=== PATIENT | male | born 1985 | race Caucasian/White ===

== ENCOUNTER 2016-04-22 16:25 | Inpatient (IN) | payer MEDICAID ==
--- NOTE | 2016-04-22 16:31 | EDPHY ---
H & P Time Seen by Provider: 04/22/16 16:27 HPI/ROS: CHIEF COMPLAINT: Febrile illness HISTORY OF PRESENT ILLNESS: The patient presents to the ED with a 3 day history of fever and dry cough. The patient has a history of IV drug use and has been using recently. The patient reports a prior history of a febrile illness approximately 3 months ago which led to a hospitalization in [place]. He tells me during that hospitalization he was not treated with antibiotics. It sounds as if they did not establish an obvious source of infection. The patient denies any acute vomiting or diarrhea. The patient does have nausea. The patient denies significant abdominal pain. He does complain of diffuse myalgias. REVIEW OF SYSTEMS: A comprehensive 10 point review of systems is otherwise negative aside from elements mentioned in the history of present illness. Source: Patient Exam Limitations: No limitations - Family History Significant Family History: No pertinent family hx - Social History Smoking Status: Current some day smoker Alcohol Use: Other Drug Use: Heroin - Physical Exam Exam: General Appearance: Alert, no distress Eyes: Pupils equal and round no pallor or injection ENT, Mouth: Mucous membranes moist Respiratory: There are no retractions, rhonchorous breath sounds heard in the right lung field Cardiovascular: Tachycardic, 2/6 systolic ejection murmur Gastrointestinal: Abdomen is soft and nontender, no masses, bowel sounds normal Neurological: A&O, normal motor function, normal sensory exam, normal cranial nerves Skin: Stigmata of IV drug use noted Musculoskeletal: Neck is supple nontender Extremities: symmetrical, full range of motion Psychiatric: Patient is oriented X 3, there is no agitation Constitutional: Initial Vital Signs Temperature (C) 103.2 C H 04/22/16 16:48 Heart Rate 111 H 04/22/16 16:48 Respiratory Rate 16 04/22/16 16:48 Blood Pressure 117/68 04/22/16 16:48 O2 Sat (%) 98 04/22/16 16:48 O2 Delivery Mode Nasal Cannula O2 (L/minute) 2 Allergies/Adverse Reactions: No Known Allergies Allergy (Unverified 04/22/16 17:09) Medical Decision Making - Diagnostics Imaging: Chest x-ray AP lateral: Right middle lobe infiltrate noted ED Course/Re-evaluation: The patient presents to the emergency department with sepsis as defined by SIRS criteria (tachycardia, fever) in source of infection with pneumonia. The patient had blood cultures x2 obtained. His initial lactate is normal. He has no evidence of end-organ dysfunction. Blood cultures x2 have been obtained. The patient has been started on Invanz and vancomycin given his history of IV drug use. The patient does have a slight systolic ejection murmur. Given his history of IV drug use, endocarditis is not fully excluded. Consultation is made with the hospitalist service for admission. The patient has no evidence of severe sepsis or septic shock. The patient will be admitted to a medical-surgical floor bed. I discussed the case with Dr. Mark King at 6:00 p.m.. He will admit the patient. Differential Diagnosis: Differential diagnosis considered includes influenza, pneumonia, sepsis, severe sepsis, septic shock - Data Points Laboratory Results: Laboratory Results 04/22/16 16:34 04/22/16 16:34 04/22/16 04/22/16 17:18 16:34 WBC 8.06 10^3/uL (3.80-9.50) RBC 4.51 10^6/uL (4.40-6.38) Hgb 13.8 g/dL (13.7-17.5) Hct 40.5 % (40.0-51.0) MCV 89.8 fL (81.5-99.8) MCH 30.6 pg (27.9-34.1) MCHC 34.1 g/dL (32.4-36.7) RDW 13.1 % (11.5-15.2) Plt Count 190 10^3/uL (150-400) MPV 10.0 fL (8.7-11.7) Neut % (Auto) 68.0 % (39.3-74.2) Lymph % (Auto) 16.1 % (15.0-45.0) [place] % (Auto) 15.3 H % (4.5-13.0) Eos % (Auto) 0.0 L % (0.6-7.6) Baso % (Auto) 0.2 L % (0.3-1.7) Nucleat RBC Rel Count 0.0 % (0.0-0.2) Absolute Neuts (auto) 5.48 10^3/uL (1.70-6.50) Absolute Lymphs (auto) 1.30 10^3/uL (1.00-3.00) Absolute Monos (auto) 1.23 H 10^3/uL (0.30-0.80) Absolute Eos (auto) 0.00 L 10^3/uL (0.03-0.40) Absolute Basos (auto) 0.02 10^3/uL (0.02-0.10) Absolute Nucleated RBC 0.00 10^3/uL (0-0.01) Immature Gran % 0.4 % (0.0-1.1) Immature Gran # 0.03 10^3/uL (0.00-0.10) VBG Lactic Acid 1.5 mmol/L (0.7-2.1) Sodium 131 L mEq/L (134-144) Potassium 4.2 mEq/L (3.5-5.2) Chloride 90 L mEq/L (97-110) Carbon Dioxide 28 mEq/l (22-31) Anion Gap 13 mEq/L (8-16) BUN 6 L mg/dL (7-23) Creatinine 0.6 L mg/dL (0.7-1.3) Estimated GFR > 60 Glucose 93 mg/dL (70-100) Calcium 8.8 mg/dL (8.5-10.4) Influenza A & B (PCR) Pending Medications Given: Discontinued Medications Acetaminophen (Tylenol) 1,000 mg PO EDNOW ONE Stop: 04/22/16 17:09 Last Admin: 04/22/16 17:09 Dose: 1,000 mg Sodium Chloride (Ns) 1,000 mls @ 0 mls/hr IV ONCE ONE PRN Reason: Wide Open Stop: 04/22/16 17:09 Last Admin: 04/22/16 17:09 Dose: 1,000 mls Departure - Departure Disposition: [facility] Inpatient Acute Clinical Impression: Sepsis, Pneumonia, Intravenous drug abuse Condition: Fair Referrals: NONE *PRIMARY CARE P,. [Primary Care Provider] - As per Instructions
[2016-04-22] MEDS ORDERED: IBUPROFEN 600 MG TAB PO ONE (16:37)
[2016-04-22] MEDS ORDERED: ACETAMINOPHEN 500 MG TAB ONE (16:37)
[2016-04-22 16:53] LABS: % IMMATURE GRANULYOCYTES 0.4 % (0.0-1.1); ABSOLUTE IMMATURE GRANULOCYTES 0.03 10^3/uL (0.00-0.10); ADD DIFF? NO; ADD MORPH? NO; ADD SCAN? NO; ATYPICAL LYMPHOCYTE FLAG 60 (0-99); FRAGMENT RBC FLAG 0 (0-99); HEMATOCRIT 40.5 % (40.0-51.0); HEMOGLOBIN 13.8 g/dL (13.7-17.5); LEFT SHIFT FLG 60 (0-99); LIPEMIA HEMOLYSIS FLAG 90 (0-99); MEAN CELL HEMOGLOBIN 30.6 pg (27.9-34.1); MEAN CELL HEMOGLOBIN CONCENTR. 34.1 g/dL (32.4-36.7); MEAN CELL VOLUME 89.8 fL (81.5-99.8); PLATELET CLUMPS FLAG 10 (0-99); PLATELET COUNT 190 10^3/uL (150-400); RED BLOOD CELL COUNT 4.51 10^6/uL (4.40-6.38); RED CELL DISTRIBUTION WIDTH 13.1 % (11.5-15.2)
[2016-04-22 17:05] LABS: ANION GAP 13 mEq/L (8-16); CALCIUM 8.8 mg/dL (8.5-10.4); CARBON DIOXIDE 28 mEq/l (22-31); CHLORIDE 90 mEq/L (97-110); CREATININE 0.6 mg/dL (0.7-1.3); GLOMERULAR FILTRATION RATE > 60; GLUCOSE 93 mg/dL (70-100); POTASSIUM 4.2 mEq/L (3.5-5.2); SODIUM 131 mEq/L (134-144)
[2016-04-22] MEDS ORDERED: ACETAMINOPHEN 500 MG TAB PO ONE (17:08)
[2016-04-22] MEDS ORDERED: NS 1,000 ML IV ONE (17:08)
[2016-04-22] MEDS ORDERED: ERTAPENEM 1 GM in NS 100 ML IV ONE (17:36)
[2016-04-22] MEDS ORDERED: VANCOMYCIN HCL/NORMAL SALINE 250 ML IV ONE (17:55)
[2016-04-22] MEDS ORDERED: NICOTINE 21 MG/24 HR PATCH TD ONE (18:40)
--- NOTE | 2016-04-22 18:46 | PDGENHP ---
History and Physical - Chief Complaint Fever and weakness - History of Present Illness this is a 30-year-old male with history of IV methamphetamine use presented to the emergency department with 4 days of fever. Patient states that he had a temperature of 104degrees. His fever broke yesterday and returned today. It is associated with chills and rigors. He has had a cough for 2 weeks that is worsening. He has occasional alejo and sputum. He has some shortness of breath. Reports some dull pain in his low back. Patient states that he was hospitalized 2 and half months ago at [facility] in [place] where he was diagnosed with a systemic infection but was not treated with antibiotics. He denies having a persistent fever since this past discharge. History Information - Allergies/Home Medication List Allergies/Adverse Reactions: No Known Allergies Allergy (Unverified 04/22/16 17:09) Home Medications: NK [No Known Home Meds] 04/22/16 [Last Taken Unknown] I have personally reviewed and updated: family history, medical history, social history, surgical history - Past Medical History Additional medical history: Hepatitis-C - Social History Smoking Status: Current some day smoker Alcohol Use: None Drug Use: Other ( reports IV methamphetamine use. Last 6 was yesterday.) Additional social history: patient is . 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 Is currently homeless and is staying [facility]. He plans to travel back to [facility] once he has funds in place Review of Systems ROS: 10pt was reviewed & negative except for what was stated in HPI & below Physical Exam Temp Pulse Resp BP Pulse Ox 37.4 C 100 14 93/55 L 96 04/22/16 18:39 04/22/16 18:39 04/22/16 18:39 04/22/16 18:39 04/22/16 18:39 Constitutional: not in pain, uncomfortable Eyes: PERRL, anicteric sclera, EOMI Ears, Nose, Mouth, Throat: moist mucous membranes, hearing normal, ears appear normal, no oral mucosal ulcers Cardiovascular: systolic murmur, tachycardia, No JVD, No edema Respiratory: no respiratory distress, no rales or rhonchi, clear to auscultation , rhonchi ( Right lung field) Gastrointestinal: normoactive bowel sounds, soft, non-tender abdomen, no palpable masses, No guarding, No rebound Genitourinary: no bladder fullness, no bladder tenderness Skin: warm, normal color, no rashes or abrasions, no fluctuance, no induration, other ( diaphoretic), No mottled Musculoskeletal: full muscle strength, no muscle tenderness, normal joint ROM, no joint effusions Neurologic: AAOx3, CN II-XII Intact, No facial droop Psychiatric: interacting appropriately, not anxious, not encephalopathic, thought process linear Lymph, Heme, Immunologic: no cervical LAD, no supraclavicular LAD Lab Data & Imaging Review 04/22/16 16:34 04/22/16 16:34 WBC 8.06 10^3/uL (3.80-9.50) 04/22/16 16:34 RBC 4.51 10^6/uL (4.40-6.38) 04/22/16 16:34 Hgb 13.8 g/dL (13.7-17.5) 04/22/16 16:34 Hct 40.5 % (40.0-51.0) 04/22/16 16:34 MCV 89.8 fL (81.5-99.8) 04/22/16 16:34 MCH 30.6 pg (27.9-34.1) 04/22/16 16:34 MCHC 34.1 g/dL (32.4-36.7) 04/22/16 16:34 RDW 13.1 % (11.5-15.2) 04/22/16 16:34 Plt Count 190 10^3/uL (150-400) 04/22/16 16:34 MPV 10.0 fL (8.7-11.7) 04/22/16 16:34 Neut % (Auto) 68.0 % (39.3-74.2) 04/22/16 16:34 Lymph % (Auto) 16.1 % (15.0-45.0) 04/22/16 16:34 [place] % (Auto) 15.3 % (4.5-13.0) H 04/22/16 16:34 Eos % (Auto) 0.0 % (0.6-7.6) L 04/22/16 16:34 Baso % (Auto) 0.2 % (0.3-1.7) L 04/22/16 16:34 Nucleat RBC Rel Count 0.0 % (0.0-0.2) 04/22/16 16:34 Absolute Neuts (auto) 5.48 10^3/uL (1.70-6.50) 04/22/16 16:34 Absolute Lymphs (auto) 1.30 10^3/uL (1.00-3.00) 04/22/16 16:34 Absolute Monos (auto) 1.23 10^3/uL (0.30-0.80) H 04/22/16 16:34 Absolute Eos (auto) 0.00 10^3/uL (0.03-0.40) L 04/22/16 16:34 Absolute Basos (auto) 0.02 10^3/uL (0.02-0.10) 04/22/16 16:34 Absolute Nucleated RBC 0.00 10^3/uL (0-0.01) 04/22/16 16:34 Immature Gran % 0.4 % (0.0-1.1) 04/22/16 16:34 Immature Gran # 0.03 10^3/uL (0.00-0.10) 04/22/16 16:34 VBG Lactic Acid 1.5 mmol/L (0.7-2.1) 04/22/16 16:34 Sodium 131 mEq/L (134-144) L 04/22/16 16:34 Potassium 4.2 mEq/L (3.5-5.2) 04/22/16 16:34 Chloride 90 mEq/L (97-110) L 04/22/16 16:34 Carbon Dioxide 28 mEq/l (22-31) 04/22/16 16:34 Anion Gap 13 mEq/L (8-16) 04/22/16 16:34 BUN 6 mg/dL (7-23) L 04/22/16 16:34 Creatinine 0.6 mg/dL (0.7-1.3) L 04/22/16 16:34 Estimated GFR > 60 04/22/16 16:34 Glucose 93 mg/dL (70-100) 04/22/16 16:34 Calcium 8.8 mg/dL (8.5-10.4) 04/22/16 16:34 Visualized and Interpreted Chest x-ray results: Yes Chest X-Ray results: normal heart size, infiltrate ( right middle lobe) Assessment & Plan Assessment: This is a 30-year-old male with history of IV drug abuse presenting with: # sepsis # suspected community-acquired pneumonia # holosystolic murmur concerning for endocarditis # history of hepatitis-C # homelessness # tobacco abuse # history of IV drug abuse plan: -Start empiric antibiotics with vancomycin and Zosyn pending blood culture results - monitor for signs symptoms of severe sepsis and septic shock - echocardiogram - obtained records from [facility] regarding his admission 2 and half months ago - will check LFTs as well as coags disposition: patient is high risk and will be admitted to the hospital under inpatient status due to need for IV antibiotics
[2016-04-22] MEDS ORDERED: ONDANSETRON 4 MG/2 ML VIAL IVP PRN (18:54)
[2016-04-22 18:55] LABS: COLOR YELLOW; LEUKOCYTE ESTERASE,URINE NEGATIVE (NEGATIVE); NITRITE,URINE NEGATIVE (NEGATIVE)
[2016-04-22] MEDS: PIPERACILLIN/TAZO 3.375 GM/DEX 50 ML IV SCH (22:14)
--- NOTE | 2016-04-22 23:51 | DX ---
Chest 2 views at 1630 hours History: Cough. Findings: Alveolar opacity in the right middle lobe consistent with pneumonia. Left lung is clear. No pleural effusion or pneumothorax. Impression: Right middle lobe pneumonia.
[2016-04-22] MEDS: VANCOMYCIN 1.25 GM in D5W 250 ML IV SCH (23:54)
[2016-04-23] MEDS ORDERED: PIPERACILLIN/TAZO 3.375 GM/DEX 50 ML IV SCH
[2016-04-23] MEDS: ACETAMINOPHEN 325 MG TAB PO PRN ×2 (00:02→06:05)
[2016-04-23] MEDS: PIPERACILLIN/TAZO 3.375 GM/DEX 50 ML IV SCH ×3 (04:02→16:00)
[2016-04-23 05:33] LABS: ADD DIFF? YES; ADD MORPH? NO; FRAGMENT RBC FLAG 0 (0-99); HEMATOCRIT 37.9 % (40.0-51.0); HEMOGLOBIN 12.8 g/dL (13.7-17.5); LIPEMIA HEMOLYSIS FLAG 90 (0-99); MEAN CELL HEMOGLOBIN 30.5 pg (27.9-34.1); MEAN CELL HEMOGLOBIN CONCENTR. 33.8 g/dL (32.4-36.7); MEAN CELL VOLUME 90.2 fL (81.5-99.8); MEAN PLATELET VOLUME 10.5 fL (8.7-11.7); PLATELET CLUMPS FLAG 0 (0-99); PLATELET COUNT 151 10^3/uL (150-400); RED CELL DISTRIBUTION WIDTH 13.4 % (11.5-15.2)
[2016-04-23 05:41] LABS: LEFT SHIFT FLG 130 (0-99)
[2016-04-23 05:42] LABS: ADD SCAN? NO; ATYPICAL LYMPHOCYTE FLAG 140 (0-99)
[2016-04-23 05:45] LABS: INR 1.12 (0.83-1.16); PROTIME(PATIENT) 14.3 SEC (12.0-15.0)
[2016-04-23 05:46] LABS: ALANINE AMINOTRANSFERASE 50 IU/L (21-72); ALBUMIN 2.6 g/dL (3.5-5.0); ALKALINE PHOSPHATASE 66 IU/L (38-126); ANION GAP 8 mEq/L (8-16); ASPARTATE AMINOTRANSFERASE 20 IU/L (17-59); BILIRUBIN,TOTAL 0.7 mg/dL (0.1-1.4); CALCIUM 8.3 mg/dL (8.5-10.4); CARBON DIOXIDE 28 mEq/l (22-31); CHLORIDE 99 mEq/L (97-110); CREATININE 0.5 mg/dL (0.7-1.3); GLOMERULAR FILTRATION RATE > 60; GLUCOSE 95 mg/dL (70-100); POTASSIUM 3.5 mEq/L (3.5-5.2); SODIUM 135 mEq/L (134-144); TOTAL PROTEIN 5.4 g/dL (6.3-8.2)
[2016-04-23 06:08] LABS: PLATELET ESTIMATE ADEQUATE (ADEQ)
[2016-04-23] MEDS: VANCOMYCIN 1.25 GM in D5W 250 ML IV SCH ×2 (08:19→16:37)
[2016-04-23] MEDS: NICOTINE 21 MG/24 HR PATCH TD SCH (08:19)
--- NOTE | 2016-04-23 09:44 | ECHO ---
[id number] + + [address] : : [place] [address] : : [phone] + + Adult Echocardiographic Report + ------+ :Name: RALPH WELLScindy Date: 04/23/2016 08:16 AM : : Hospital Admission Number: [id number] Maria Isabelo n: 373: :: 1985 Gender: Male Height: 80 in : :Age: 30 yrs Race: WH Weight: 250 lb : :Reason For Study: H/O IVDA with murmur : : BSA: 2.5 meters 2 : + ------+ MMode/2D Measurements & Calculations IVSd: 1.1 cm LVIDd: 5.7 cm FS: 31.2 % Ao root diam: 3.4 cm LVPWd: 0.93 cm LVIDs: 4.0 cm EDV(Teich): 163.2 ml LA dimension: 3.6 cm ESV(Teich): 68.3 ml EF(Teich): 58.2 % Normal Measurement Values: + + :LVIDd (3.5-5.7cm) IVSd (0.6-1.1cm) LVPWd (0.6-1.1cm) Aortic Root (2.0-3.7cm)Left Atrium (1.5-4.0cm): :LV Vol(d) (76-115ml) LV Vol(s) (29-48ml) Ejec Fraction (50-65%)PV Dirk (0.6- 1.2m/s) TV Dirk (0.4-1.0m/s) : :MV E Dirk (0.8-1.0m/s)MV A Dirk (0.3-1.0m/s)LVOT Dirk (0.7-1.2m/s) Asc Ao Dirk ( 0.9-1.8m/s) : + + Doppler Measurements & Calculations MV E max dirk: 76.0 cm/sec Ao V2 max: 134.4 cm/sec TR max dirk: 221.3 cm/sec MV A max dirk: 61.7 cm/sec Ao max P.2 mmHg TR max P.6 mmHg MV E/A: 1.2 RAP systole: 5.0 mmHg RVSP(TR): 24.6 mmHg Left Ventricle The left ventricle is not well visualized. There is normal left ventricular wall thickness. Left ventricular systolic function is normal. LV septal wall appears slightly flattenend. Right Ventricle The right ventricle is normal in size and function. Atria The left atrial size is normal. Right atrial size is normal. The interatrial septum is intact with no evidence for an atrial septal defect. Mitral Valve The mitral valve is normal in structure and function. There is no evidence of mitral valve prolapse. There is no mitral valve stenosis. There is trace mitral regurgitation. Tricuspid Valve A tricuspid valve vegetation cannot be excluded. There is trace to mild tricuspid regurgitation. Aortic Valve The aortic valve opens well. There is no aortic stenosis. There is no aortic insufficiency. Pulmonic Valve The pulmonic valve is normal in structure and function. Trace pulmonic valvular regurgitation. Great Vessels The aortic root is normal size. Pericardium/Pleural There is no pericardial effusion. Conclusion A complete two-dimensional transthoracic echocardiogram was performed (2D, M-mode, Doppler and color flow Doppler). Would consider a transesophageal echocardiogram if clinically indicated. Left ventricular systolic function is normal. LV septal wall appears slightly flattenend. The left ventricle is not well visualized. There is trace mitral regurgitation. A tricuspid valve vegetation cannot be excluded. There is trace to mild tricuspid regurgitation. Trace pulmonic valvular regurgitation. Would consider a transesophageal echocardiogram if clinically indicated. Final Reading Physician: Dennis Pereyra signed on 04/23/2016 09:43 AM Ordering Physician: Mark King Performed By: Elizabeth Castillo RDCS
--- NOTE | 2016-04-23 16:42 | HOSPPROG ---
Hospitalist Progress Note Assessment/Plan: * Sepsis - BC + GPC chains - suspect strep -consult ID - will defer narrowing of abx to them -currently IV Vanco, IV Zosyn * RML pneumonia -abx as above * IVDA -check HIV - discussed with patient * Possible TV vegetation -d/w ID whether LEAH needed * Tobacco dependence - patch * Hep C Subjective: Feels very poorly Objective: Vital Signs Temp Pulse Resp BP Pulse Ox 36.5 C 84 18 113/63 99 04/23/16 16:00 04/23/16 16:00 04/23/16 16:00 04/23/16 16:00 04/23/16 16:00 Laboratory Results 04/23/16 04:53 04/23/16 04:53 04/22/16 04/23/16 04/24/16 05:59 05:59 05:59 Intake Total 1999 Balance 1999 PT 14.3 SEC (12.0-15.0) 04/23/16 04:53 INR 1.12 (0.83-1.16) 04/23/16 04:53 ECHO: cannot rule out vegetation on TV - Physical Exam Constitutional: uncomfortable, unkempt, other (diaphoretic and looks fairly toxic and uncomfortable) Cardiovascular: regular rate and rhythym, No JVD, No tachycardia, No edema Respiratory: no respiratory distress, no rales or rhonchi, clear to auscultation Gastrointestinal: normoactive bowel sounds, soft, non-tender abdomen, no palpable masses Skin: rash Neurologic: AAOx3, sensation intact bilaterally Psychiatric: interacting appropriately, not anxious, not encephalopathic, thought process linear ICD10 Worksheet Patient Problems: Problems Problem Status Diagnosed IV drug abuse Acute Pneumonia Acute Sepsis Acute
[2016-04-23] MEDS ORDERED: NS 1,000 ML IV SCH (18:15)
--- NOTE | 2016-04-23 19:04 | GCON ---
[f rep st] CONSULTATION INFECTIOUS DISEASE CONSULTATION REFERRING PHYSICIAN: Ana Dick MD REASON FOR CONSULTATION: Positive blood cultures and abnormal 2D echo. CHIEF COMPLAINT: Fevers and chills. HISTORY OF PRESENT ILLNESS: This is a 30-year-old male with a past medical history significant for bladder diverticulum who uses IV methamphetamine , who started to have complaints of fevers and shaking chills about 5 days ago. He states he also had sweats and intermittent headache. He denied any neck stiffness or pain. He states that recently he had been using methamphetamine IV. He had most recently used it actually 4 days ago, as well as yesterday. He also has been having some right-sided lower rib pain as well, especially with deep breathing or coughing, and that has been there for the past couple of weeks. He denies being short of breath but does have a dry cough. He is unable to bring up any phlegm at this time. He states that he does have nasal drainage and postnasal drip and the secretions are either clear or sometimes greenish in nature. He states he has had that for several weeks. He denies any sinus pressure or pain. He denies any oral pain or sore throat or difficulty swallowing. He said that he had similar symptoms about 3 months ago. He was evaluated at [facility]. He said he had cultures done, but they were negative. He had an MRI Lumbar spine which did not show discitis. He was given supportive care and was discharged at the time. On admit here, he was noted to be febrile to 103, tachycardic to 111, and his blood pressure had dropped to 93/55. He had blood cultures 2 sets drawn and one bottle out of the sets is growing out gram- positive cocci in chains. He had a 2D echo done, which showed a possible tricuspid valve vegetation. He also had a chest x-ray done, which showed a right middle lobe pneumonia. He was placed on vancomycin and Zosyn, and Infectious Disease is now called for further evaluation and opinion regarding above. REVIEW OF SYSTEMS: Fevers, chills and sweats. HEAD: Mild headache, mostly in the frontal region, relieved with Tylenol. Denies any neck stiffness or pain. EYES: No change in vision. ENT: No sore throat, difficulty, swallowing, ear pain or ear drainage. He had some nasal drainage as stated above without sinus pressure. CARDIOVASCULAR: Denies any chest pain, although has had intermittent sensations of tachycardia. RESPIRATORY: Denies any shortness of breath. Does have a dry cough mostly. ABDOMEN: Denies any nausea, vomiting, abdominal pain or diarrhea. : No dysuria, hematuria, back pain or flank pain. MUSCULOSKELETAL: Denies any joint pains or muscle aches. LOWER EXTREMITIES: Denies any swelling of the lower extremities. ENDOCRINE: He states he has lost 20 pounds over the past 2 weeks. Rest of 10-point review of systems essentially negative except for above. PAST MEDICAL HISTORY: Significant for bladder diverticulum and hepatitis C (s/ p treatment with Interferon in 2012 where he states he then subsequently had a negative viral load.) I reviewed records from [facility] and found that in 12/2015 he had a detectable HCV viral load of 91,000 at [facility].. PAST SURGICAL HISTORY: Significant for surgery for the bladder diverticulum as a child. ALLERGIES: No known drug allergies. SOCIAL HISTORY: He smokes 1/2 pack of cigarettes per day for the past 3 years. Alcohol: He denies alcohol use. Drugs: He uses methamphetamine. He shares needles with his only who states she is HCV negative. Last was yesterday. He is . He is unemployed. He moved to [place] in November, and he has been in [place] for the past 1 month. He is homeless and staying in [facility]. He is originally from [place]. FAMILY HISTORY: Significant for diabetes. PHYSICAL EXAMINATION: VITAL SIGNS: Temperature current 36.5. Pulse is 84. Respiratory rate is 18, blood pressure 113/63, saturation 99% on 1 L of O2 via nasal cannula. GENERAL: Patient is resting in bed in no acute respiratory distress. He is mildly diaphoretic. He is awake, alert and oriented x3. HEENT : Head is normocephalic, atraumatic. Pupils are equal, round and reactive to light. No conjunctival injection or petechiae noted. Oropharynx is clear. There is no posterior pharyngeal erythema or thrush, no oropharyngeal lesions noted. CARDIOVASCULAR: S1, S2. Regular rate and rhythm. He has a soft systolic murmur noted. RESPIRATORY: Coarse breath sounds at the right base with rhonchi appreciated. ABDOMEN: Positive bowel sounds in all 4 quadrants. Soft, nontender, nondistended. No organomegaly appreciated. EXTREMITIES: No lower extremity edema. MUSCULOSKELETAL: No obvious joint effusions or pain on palpation of the joints. SKIN: No obvious rashes. He has some scabs noted, scattered. LABS: White cell count is 9.6, hemoglobin 12.8. Platelets are 151. Neutrophil count is 40% with 20% bandemia. INR 1.1. Venous lactic acid 1.5. Sodium 135, potassium 3.5. Chloride is 99. Bicarb is 28. BUN is 5, creatinine 0.5. His LFTs are within the normal range. Urinalysis is unremarkable. Influenza A and B PCR negative. Blood cultures x2 sets with gram-positive cocci in chains in 1 set. X-rays were reviewed by me with a right middle lobe infiltrate noted. 2D echo noted with a possible vegetation on the tricuspid valve. ASSESSMENT: 1. Sepsis secondary to gram-positive cocci bacteremia. 2. Right middle lobe pneumonia. 3. Possible endocarditis. 4. Chronic Hepatitis C,-s/p treatment but recently shows detectable viral load PLAN: At this point in time, await final ID on the gram-positive cocci to further delineate antimicrobial therapy. He is currently on vancomycin and Zosyn. Will discontinue the Zosyn and start ceftriaxone and will continue vancomycin for now. Will repeat blood cultures in the a.m. to follow course of therapy. Would recommend a LEAH to further evaluate his tricuspid valve to ascertain whether or not he actually has endocarditis involving the tricuspid valve. Will keep patient n.p.o. Tonight. Plan of care was discussed at length with the patient including a LEAH. Care was coordinated with the hospitalist team and the orders were placed. He will need follow up regarding his Hepatitis C in the outpatient. I thank you very much for allowing me this opportunity to care for your patient in consultation. /[id number]/MODL MTDD
[2016-04-24] MEDS: VANCOMYCIN 1.25 GM in D5W 250 ML IV SCH ×3 (01:03→16:57)
[2016-04-24] MEDS: ACETAMINOPHEN 325 MG TAB PO PRN ×2 (01:17→19:14)
[2016-04-24 05:45] LABS: ADD DIFF? YES; ADD MORPH? NO; ADD SCAN? NO; ATYPICAL LYMPHOCYTE FLAG 70 (0-99); FRAGMENT RBC FLAG 0 (0-99); HEMATOCRIT 46.3 % (40.0-51.0); HEMOGLOBIN 15.4 g/dL (13.7-17.5); LEFT SHIFT FLG 10 (0-99); LIPEMIA HEMOLYSIS FLAG 80 (0-99); MEAN CELL HEMOGLOBIN 30.4 pg (27.9-34.1); MEAN CELL HEMOGLOBIN CONCENTR. 33.3 g/dL (32.4-36.7); MEAN CELL VOLUME 91.3 fL (81.5-99.8); MEAN PLATELET VOLUME 10.4 fL (8.7-11.7); PLATELET CLUMPS FLAG 20 (0-99); PLATELET COUNT 172 10^3/uL (150-400); RED BLOOD CELL COUNT 5.07 10^6/uL (4.40-6.38); RED CELL DISTRIBUTION WIDTH 13.4 % (11.5-15.2)
[2016-04-24 05:47] LABS: ANION GAP 12 mEq/L (8-16); CALCIUM 9.1 mg/dL (8.5-10.4); CARBON DIOXIDE 25 mEq/l (22-31); CHLORIDE 103 mEq/L (97-110); CREATININE 0.6 mg/dL (0.7-1.3); GLOMERULAR FILTRATION RATE > 60; GLUCOSE 95 mg/dL (70-100); POTASSIUM 4.5 mEq/L (3.5-5.2); SODIUM 140 mEq/L (134-144)
--- NOTE | 2016-04-24 07:03 | PCMIDPN ---
Assessment/Plan: Assessment/Plan: 1. Sepsis secondary to GPC bacteremia, RML pneumonia and possible TV endocarditis: - Currently on Vanco, Ceftriaxone -Repeat blood cx in progress-pending -TTE with possible TV vegetation. LEAH ordered for today. Patient NPO -Awaiting ID on the GPC from blood cx. -Will check vanco trough. 2.Chronic HCV: -per patient, s/p treatment with Interferon x 6 months in 2012 with undetectable viral load thereafter. He shares needles with his (who states does not have HCV) -Per [facility]: shows detectable HCV RNA at 91,000. -HIV neg in 12/2015. HIV studies pending here. - Will need OP follow up Meds vanco 1.25gm q8- Ceftriaxone 2g daily- 04/24/16 s/p zosyn Subjective: Afebrile. Less diaphoretic at present, but did have drenching sweats in the night. Denies sob. Dry cough. Denies abd pain. did have some loose stools. Denies back pain, flank pain, muscle weakness, numbness/tingling or joint pains. Objective: Vital Signs Temp Pulse Resp BP Pulse Ox 36.6 C 75 18 123/69 H 98 04/24/16 04:00 04/24/16 04:00 04/24/16 04:00 04/24/16 04:00 04/24/16 04:00 Laboratory Results 04/24/16 05:16 04/24/16 05:16 04/23/16 04/24/16 04/25/16 05:59 05:59 05:59 Intake Total 1999 560 Output Total 1000 Balance 1999 - - Physical Exam General Appearance: alert, no apparent distress Respiratory: coarse breath sounds Cardiac/Chest: regular rate, rhythm, systolic murmur Extremities: No swelling Abdomen: normal bowel sounds, non-tender, soft, No distended Skin: No erythema ICD10 Worksheet Patient Problems: Problems Problem Status Diagnosed IV drug abuse Acute Pneumonia Acute Sepsis Acute
[2016-04-24 07:06] LABS: PLATELET ESTIMATE ADEQUATE (ADEQ)
[2016-04-24 07:16] LABS: SEDIMENTATION RATE 40 MM/HR (0-15)
[2016-04-24] MEDS: NICOTINE 21 MG/24 HR PATCH TD SCH (08:04)
[2016-04-24] MEDS: cefTRIAXone 2 GM in D5W 50 ML IV SCH (09:34)
--- NOTE | 2016-04-24 12:33 | HOSPPROG ---
Hospitalist Progress Note Assessment/Plan: * Sepsis - Strep pneumo -IV Vanco, IV ceftriaxone per ID * RML pneumonia -abx as above * IVDA -HIV negative * Possible TV vegetation -LEAH today * Tobacco dependence - patch * Hep C Subjective: Feeling better Objective: Vital Signs Temp Pulse Resp BP Pulse Ox 37.0 C 69 20 104/59 L 98 04/24/16 11:30 04/24/16 11:30 04/24/16 11:30 04/24/16 11:30 04/24/16 11:30 Laboratory Results 04/24/16 05:16 04/24/16 05:16 04/23/16 04/24/16 04/25/16 05:59 05:59 05:59 Intake Total 1999 560 Output Total 1000 Balance 1999 -440 PT 14.3 SEC (12.0-15.0) 04/23/16 04:53 INR 1.12 (0.83-1.16) 04/23/16 04:53 - Physical Exam Constitutional: no apparent distress, appears nourished, not in pain Cardiovascular: regular rate and rhythym, no murmur, rub, or gallop Respiratory: no respiratory distress, no rales or rhonchi, clear to auscultation Gastrointestinal: normoactive bowel sounds, soft, non-tender abdomen, no palpable masses Skin: no rashes or abrasions, no fluctuance, no induration Neurologic: AAOx3, sensation intact bilaterally Psychiatric: interacting appropriately, not anxious, not encephalopathic, thought process linear ICD10 Worksheet Patient Problems: Problems Problem Status Diagnosed IV drug abuse Acute Pneumonia Acute Sepsis Acute
[2016-04-24] MEDS ORDERED: LIDOCAINE 2% 100 MG/5 ML SYR IVP ONE (14:11)
[2016-04-24] MEDS ORDERED: PROPOFOL 200 MG/20 ML VIAL ONE (14:11)
[2016-04-25] MEDS: VANCOMYCIN 1.25 GM in D5W 250 ML IV SCH ×2 (00:11→07:29)
[2016-04-25] MEDS: NICOTINE 21 MG/24 HR PATCH TD SCH (07:33)
[2016-04-25 08:15] VITALS: BP 116/69; PULSE 77; RESP 18; TEMP 98.1; O2SAT 96
[2016-04-25] MEDS: cefTRIAXone 2 GM in D5W 50 ML IV SCH (10:07)
--- NOTE | 2016-04-25 13:14 | ECHO ---
[id number] + + [address] : : [facility] [address] : : [phone] + + Transesophageal Echocardiographic Report + ------+ :Name: Dagoberto WELLS Date: 04/24/2016 12:53 PM : : Hospital Admission Number: [id number] Locatio n: CVC: :: 1985 Gender: Male : :Age: 30 yrs Race: WH : :Reason For Study: Eval for endocarditis : + ------+ Left Ventricle Left ventricular systolic function is normal. Mitral Valve There is no vegetation seen on the mitral valve. There is trace mitral regurgitation. Tricuspid Valve There is no tricuspid valve vegetation. Aortic Valve The aortic valve is trileaflet. There is no aortic valvular vegetation. Pulmonic Valve The pulmonic valve is normal in structure and function. There is no vegetation on the pulmonic valve. Conclusion A 2D transesophageal echocardiogram with color flow Doppler was performed. Left ventricular systolic function is normal. There is no vegetation seen on the mitral valve. There is trace mitral regurgitation. There is no tricuspid valve vegetation. There is no aortic valvular vegetation. There is no vegetation on the pulmonic valve. Final Reading Physician: Dennis Holloway signed on 04/25/2016 01:13 PM Ordering Physician: Robert Prasad Performed By: Sonny Nuñez MD
--- NOTE | 2016-04-25 17:30 | GDS ---
[f rep st] DISCHARGE SUMMARY DISCHARGE DIAGNOSES: 1. Community-acquired pneumonia with strep pneumo sepsis. 2. Intravenous drug abuse. 3. Tricuspid valve endocarditis ruled out. 4. Tobacco dependence. 5. Hepatitis C. HISTORY: Solomon Drummond is a 30-year-old male, IV drug abuser, who presented with pneumonia. Blood cultures grew strep pneumo. Initially, felt to have a murmur and echocardiogram showed a possible v egetation on his tricuspid valve. LEAH was performed and was negative. His HIV is negative. He was seen here in consultation with Infectious Disease. Initially treated with IV vancomycin and IV ceftr iaxone while we ruled out endocarditis. Upon hospital discharge, ID has recommended transition to or al Levaquin to complete a 14-day course of therapy given his bacteremia. Clinically, he is improved and feels well. DISCHARGE MEDICATIONS: Please see computer record for full detailed list. New medications: Levaquin 750 mg p.o. daily for 12 more days. ADDITIONAL DISCHARGE INSTRUCTIONS: 1. Patient was advised against IV drug abuse. 2. Follow up primary care. He does expect to return home to [place] soon. Greater than 30 minutes' time was spent arranging this discharge. Patient was seen and examined by sarah ramos on the day of discharge. /[id number]/MODL
== END 2016-04-25 15:55 | disposition home or self-care (01) | DRG 871 ==
LOC: F3E 19:50
PROVIDERS: ADMIT Family Medicine; ATTEND Internal Medicine
PROC: B246ZZ4 Ultrasonography of Right and Left Heart, Transesophageal (ICD-10-PCS; principal; 2016-04-24)
DX: A40.3 Sepsis due to Streptococcus pneumoniae (principal); J18.9 Pneumonia, unspecified organism; F17.200 Nicotine dependence, unspecified, uncomplicated; B19.20 Unspecified viral hepatitis C without hepatic coma; F15.90 Other stimulant use, unspecified, uncomplicated; Z59.0 Homelessness
CPT/HCPCS: 96365; J0696; J1335; J2001; J2543; J2704; J3370